=== PATIENT | male | born 1985 ===

== ENCOUNTER 2020-08-19 14:31 | Emergency (ER) | payer OTHER ==
[~2020-08-19] VITALS: Ht 142.2 cm; Wt 72.7 kg
[2020-08-19 15:28] VITALS: BP 116/81
[2020-08-19] MEDS ORDERED: amox tr/potassium clavulanate 875/125mg TAB PO ONE (15:30)
[2020-08-19] MEDS ORDERED: TETanus/Pertussis (Acell)/Diphther VAC/PF (Tdap-Adult) 0.5ml syringe IMVAC ONE (15:30)
[2020-08-19] MEDS ORDERED: AMOX-422 PO (15:33)
[2020-08-19] MEDS ORDERED: ibuprofen tablet 400 MG TABLET PO ONE (15:35)
== END 2020-08-19 16:04 | disposition home or self-care (01) ==
LOC: ER 14:34
DX: S61.512A Laceration without foreign body of left wrist, initial encounter (principal); M25.532 Pain in left wrist; F17.200 Nicotine dependence, unspecified, uncomplicated; Z20.3 Contact with and (suspected) exposure to rabies; Z72.89 Other problems related to lifestyle; Z79.2 Long term (current) use of antibiotics; W54.0XXA Bitten by dog, initial encounter; Y93.89 Activity, other specified; Y92.89 Other specified places as the place of occurrence of the external cause; Y99.8 Other external cause status
CPT/HCPCS: 90471; 90715; 99283